=== PATIENT | female | born 1970 | race African-American/Black ===

== ENCOUNTER 2016-03-01 15:08 | Day surgery (SDC) | payer OTHER ==
[~2016-03-01] VITALS: Ht 167.6 cm; Wt 55.6 kg
[~2016-03-01 15:08] MED LIST: ALBUTEROL0.83 MG/ML IH; BUTRANS20 MCG/HR TD; IMURAN 50MG TAB50 MG PO; OXYCONTIN 10MG10 MG PO; REVATIO20 MG PO; SEPTRA DS 8001 TAB PO; SINEQUAN 1010 MG/CAP PO; VITAMIN D 50,1.25 MG PO
[2016-03-01 16:19] VITALS: BP 129/90; PULSE 81; TEMP 98.9
[2016-03-01] MEDS ORDERED: ATIVAN 1MG T1 MG/TAB PO (16:24)
[2016-03-01] MEDS ORDERED: PREDNISONE 5MG5 MG PO (16:25)
[2016-03-01] MEDS ORDERED: BACTRIM DS 8001 TAB PO (16:25)
[2016-03-01] MEDS ORDERED: ZOVIRAX 200MG200 MG PO (16:26)
[2016-03-01] MEDS ORDERED: PROGRAF 1MG1 MG PO (16:26)
[2016-03-01] MEDS ORDERED: PROTONIX 40MG T40 MG PO (16:27)
[2016-03-01] MEDS ORDERED: ROXICODONE 55 MG/TAB PO (16:28)
[2016-03-01] MEDS ORDERED: BUTRANS10 MCG/HR TD (16:28)
[2016-03-01] MEDS ORDERED: NEURONTIN300 MG/CAP PO (16:29)
[2016-03-01] MEDS ORDERED: SEPTRA 400 MG-1 TAB PO (16:30)
[2016-03-01] MEDS ORDERED: ATROPINE 2 ML2 ML OU (16:30)
[2016-03-01] MEDS ORDERED: PROGRAF5 MG PO (16:31)
[2016-03-01] MEDS ORDERED: IMURAN 50MG TAB50 MG PO (16:31)
[2016-03-01] MEDS ORDERED: SINEQUAN 1010 MG/CAP PO (16:32)
[2016-03-01] MEDS ORDERED: ASPIRIN E.C. 8181 MG PO (16:32)
[2016-03-01] MEDS ORDERED: REFRESH TEARS 330 ML OP (16:33)
[2016-03-01 17:20] VITALS: BP 125/87; PULSE 83; TEMP 99.4
[2016-03-01 17:35] VITALS: BP 120/93; PULSE 82
[2016-03-01 17:50] VITALS: BP 125/90; PULSE 77
[2016-03-01 17:54] VITALS: BP 111/82; PULSE 72
== END 2016-03-01 18:08 | disposition home or self-care (01) ==
LOC: SDCO 15:08
DX: T18.3XXA Foreign body in small intestine, initial encounter (principal); R13.12 Dysphagia, oropharyngeal phase
CPT/HCPCS: C1769; J2250; J2704; J3010; J7120

== ENCOUNTER 2016-07-03 13:22 | Day surgery (SDC) | payer OTHER ==
[~2016-07-03] VITALS: Ht 160 cm; Wt 56.7 kg
[~2016-07-03 13:22] MED LIST changes: +ASPIRIN E.C. 8181 MG PO; +ATIVAN 1MG T1 MG/TAB PO; +ATROPINE 2 ML2 ML OU; +BACTRIM DS 8001 TAB PO; +BUTRANS10 MCG/HR TD; +NEURONTIN300 MG/CAP PO; +PREDNISONE 5MG5 MG PO; +PROGRAF 1MG1 MG PO; +PROGRAF5 MG PO; +PROTONIX 40MG T40 MG PO; +REFRESH TEARS 330 ML OP; +ROXICODONE 55 MG/TAB PO; +SEPTRA 400 MG-1 TAB PO; +ZOVIRAX 200MG200 MG PO
[2016-07-03] MEDS ORDERED: CYMBALTA 60MG60 MG PO (14:26)
[2016-07-03 15:05] VITALS: BP 121/86; PULSE 81; TEMP 98.6
[2016-07-03 15:50] VITALS: BP 124/91; PULSE 81; TEMP 98.1
[2016-07-03 16:05] VITALS: BP 128/96; PULSE 76
[2016-07-03] MEDS ORDERED: ZANTAC 150MG T150 MG PO (16:18)
[2016-07-03 16:20] VITALS: BP 116/92; PULSE 75
[2016-07-03 16:35] VITALS: BP 124/86; PULSE 74
== END 2016-07-03 17:15 | disposition home or self-care (01) ==
LOC: SDCO 13:22
DX: R13.12 Dysphagia, oropharyngeal phase (principal); K25.7 Chronic gastric ulcer without hemorrhage or perforation
CPT/HCPCS: OP; J0690; J2704; J7030

== ENCOUNTER → 2016-08-24 | Outpatient (CLI) | payer OTHER ==
[~2016-08-24] MED LIST changes: +CYMBALTA 60MG60 MG PO; +ZANTAC 150MG T150 MG PO
== END ==
LOC: COL.VAS 10:19
DX: I34.0 Nonrheumatic mitral (valve) insufficiency (principal); M06.9 Rheumatoid arthritis, unspecified; D86.9 Sarcoidosis, unspecified; I87.8 Other specified disorders of veins; R60.0 Localized edema; R06.02 Shortness of breath; R06.01 Orthopnea; Z94.2 Lung transplant status

== ENCOUNTER 2017-06-22 11:44 | Emergency (ER) | payer OTHER ==
[~2017-06-22] VITALS: Ht 167.6 cm; Wt 63.6 kg
[2017-06-22 11:49] VITALS: BP 106/70; TEMP 97
[2017-06-22 12:59] VITALS: PULSE 77
== END 2017-06-22 13:12 | disposition other institution (70) ==
LOC: COL.ER 11:44
DX: Z43.1 Encounter for attention to gastrostomy (principal); Z79.52 Long term (current) use of systemic steroids; Z79.82 Long term (current) use of aspirin

== ENCOUNTER 2017-08-14 15:22 | Outpatient (CLI) | payer OTHER ==
[~2017-08-14] VITALS: Ht 167.6 cm; Wt 68.6 kg
[2017-08-14] MEDS ORDERED: ACIPHEX20 MG PO (16:08)
[2017-08-14] MEDS ORDERED: RT SPIRIVA18 MCG IH (16:08)
[2017-08-14] MEDS ORDERED: PROAIR RES117 MCG/Ac IH (16:09)
[2017-08-14] MEDS ORDERED: RT ADVAIR 528 DISKUS IH (16:10)
[2017-08-14] MEDS ORDERED: INDERAL40 MG PO (16:10)
[2017-08-14] MEDS ORDERED: ZOLOFT 100MG100 MG PO (16:12)
[2017-08-14] MEDS ORDERED: PRILOSEC 20MG20 MG PO (16:13)
[2017-08-14] MEDS ORDERED: AMBIEN 10MG10 MG PO (16:13)
[2017-08-14] MEDS ORDERED: MELATONIN5 M1 SL (16:14)
[2017-08-14] MEDS ORDERED: REVATIO20 MG PO (16:15)
[2017-08-14] MEDS ORDERED: METHOTREXA2.5 MG/TAB PO ×2 (16:17→16:18)
[2017-08-14] MEDS ORDERED: PROGRAF 1MG1 MG PO ×2 (16:30→16:31)
[2017-08-14 16:47] VITALS: BP 110/77; PULSE 78; TEMP 97.9
[2017-08-14 20:32] LABS: COLLECTION METHOD CLEAN CATCH
[2017-08-14 20:44] LABS: MUCOUS Present /lpf; PH 5 (5-8); URINE APPEARANCE Hazy; URINE BACTERIA Rare /hpf; URINE BILIRUBIN Negative (NEGATIVE); URINE BLOOD Negative (NEGATIVE); URINE COLOR Yellow; URINE GLUCOSE Negative (NEGATIVE); URINE KETONE Negative (NEGATIVE); URINE LEUKOCYTE ESTERASE Trace (NEGATIVE); URINE NITRATE Negative (NEGATIVE); URINE PROTEIN(semi-quant) Negative (NEGATIVE); URINE RBC 0-2 /hpf
[2017-08-14 20:50] LABS: URINE PROTEIN:CREAT RATIO 0.04 (0.00-0.14)
== END 2017-08-14 20:43 | disposition home or self-care (01) ==
LOC: EUO 15:22
PROVIDERS: Internal Medicine Nephrology
DX: N17.9 Acute kidney failure, unspecified (principal); D86.9 Sarcoidosis, unspecified; I27.20 Pulmonary hypertension, unspecified; N18.3 Chronic kidney disease, stage 3 (moderate); R60.9 Edema, unspecified; D64.9 Anemia, unspecified; I34.0 Nonrheumatic mitral (valve) insufficiency; Z94.2 Lung transplant status
CPT/HCPCS: J7030

== ENCOUNTER 2017-09-03 14:24 | Observation (INO) | payer OTHER ==
[~2017-09-03] VITALS: Ht 167.6 cm; Wt 68.8 kg
[~2017-09-03 14:24] MED LIST changes: +ACIPHEX20 MG PO; +AMBIEN 10MG10 MG PO; +INDERAL40 MG PO; +MELATONIN5 M1 SL; +METHOTREXA2.5 MG/TAB PO; +PRILOSEC 20MG20 MG PO; +PROAIR RES117 MCG/Ac IH; +RT ADVAIR 528 DISKUS IH; +RT SPIRIVA18 MCG IH; +ZOLOFT 100MG100 MG PO
[2017-09-03 16:43] LABS: BASO % 0.4 % (0.0-2.0); EOS # 0.1 (0.0-0.7); EOS % 3.1 % (0-4.0); GRAN # 1.1 (1.4-6.5); GRAN % 47.6 % (42.2-75.2); LYMPH # 0.9 (1.2-3.4); LYMPH % 39.9 % (20.0-51.0); MEAN CELL VOLUME 80 fl (80.0-100.0); MEAN CORPUSCULAR HGB CONC 28 g/dl (33.0-37.0); MEAN PLATELET VOLUME 12.2 fl (7.4-10.4); MONO # 0.2 (0.1-0.6); PLATELET COUNT 162 K/mm3 (130-400); RED BLOOD COUNT 3.56 M/mm3 (4.10-5.30); REDCELL DISTRIBUTION WIDTH-CV 17.4 % (11.5-14.5)
[2017-09-03 16:46] LABS: HEMATOCRIT 28.4 % (37.0-47.0); MEAN CORPUSCULAR HEMOGLOBIN 22 pg (27.0-31.0)
[2017-09-03 16:53] LABS: ALBUMIN 3.5 gm/dL (3.5-5.0); BILIRUBIN,TOTAL 0.6 mg/dL (0.0-1.0); CREATININE, serum 2.25 mg/dL (0.52-1.25); POTASSIUM 3.7 mmol/L (3.4-5.0); TOTAL PROTEIN 6.7 gm/dL (6.4-8.2)
[2017-09-03 18:24] VITALS: BP 110/83; PULSE 64; TEMP 98.2
[2017-09-03 20:00] VITALS: BP 112/79; PULSE 78; TEMP 98.6
[2017-09-04 04:56] VITALS: BP 102/76; PULSE 67; TEMP 98.5
[2017-09-04 07:01] LABS: BASO % 0.4 % (0.0-2.0); EOS % 1.7 % (0-4.0); GRAN # 1.6 (1.4-6.5); LYMPH # 0.5 (1.2-3.4); LYMPH % 22.1 % (20.0-51.0); MEAN CELL VOLUME 80 fl (80.0-100.0); MEAN CORPUSCULAR HGB CONC 29 g/dl (33.0-37.0); MEAN PLATELET VOLUME 12.1 fl (7.4-10.4); MONO # 0.2 (0.1-0.6); MONO % 7.8 % (1.7-9.3); PLATELET COUNT 179 K/mm3 (130-400); RED BLOOD COUNT 3.45 M/mm3 (4.10-5.30); REDCELL DISTRIBUTION WIDTH-CV 17.5 % (11.5-14.5)
[2017-09-04 07:04] LABS: CALCIUM 8.9 mg/dL (8.4-10.2); CREATININE, serum 2.05 mg/dL (0.52-1.25); POTASSIUM 4.3 mmol/L (3.4-5.0)
[2017-09-04 07:06] LABS: HEMATOCRIT 27.5 % (37.0-47.0); HEMOGLOBIN 7.9 g/dl (12.5-16.0); MEAN CORPUSCULAR HEMOGLOBIN 23 pg (27.0-31.0)
[2017-09-04 07:43] VITALS: BP 122/84; PULSE 71; TEMP 97.8
[2017-09-04 08:24] LABS: INR 1.4 (0.8-3.0); PROTHROMBIN TIME 15.9 SECONDS (9.7-12.8)
[2017-09-04 12:03] VITALS: BP 108/80; PULSE 62; TEMP 97.4
[2017-09-04 15:57] VITALS: BP 111/79; PULSE 71; TEMP 98.2
[2017-09-04 18:32] VITALS: BP 121/79; PULSE 72; TEMP 98.2
[2017-09-04 18:47] VITALS: BP 128/88; PULSE 73
== END 2017-09-04 20:36 | disposition home or self-care (01) ==
LOC: COL.ER 14:24 → SURG 17:37
PROVIDERS: Emergency Medicine; Physician Assistant
DX: Z43.1 Encounter for attention to gastrostomy (principal); Z94.2 Lung transplant status; D86.9 Sarcoidosis, unspecified; J84.10 Pulmonary fibrosis, unspecified; I27.20 Pulmonary hypertension, unspecified; M06.9 Rheumatoid arthritis, unspecified; F41.9 Anxiety disorder, unspecified; N18.3 Chronic kidney disease, stage 3 (moderate); K21.9 Gastro-esophageal reflux disease without esophagitis; G43.909 Migraine, unspecified, not intractable, without status migrainosus; G89.29 Other chronic pain; D53.9 Nutritional anemia, unspecified; Z86.718 Personal history of other venous thrombosis and embolism; Z79.82 Long term (current) use of aspirin; Z90.49 Acquired absence of other specified parts of digestive tract; Z95.5 Presence of coronary angioplasty implant and graft; Z80.0 Family history of malignant neoplasm of digestive organs
CPT/HCPCS: B4087; G0378; J2704; J7500; J7507; J7512

== ENCOUNTER 2017-12-04 15:54 | Day surgery (SDC) | payer OTHER ==
[~2017-12-04] VITALS: Ht 167.6 cm; Wt 68.2 kg
[~2017-12-04 15:54] MED LIST changes: +ATROPINE 2 ML2 ML OS; -ATROPINE 2 ML2 ML OU; -REFRESH TEARS 330 ML OP; +REFRESH TEARS 330 ML OU
[2017-12-04 16:52] VITALS: BP 111/85; PULSE 81; TEMP 98.8
[2017-12-04 17:15] VITALS: BP 119/91; PULSE 81
[2017-12-04 17:25] VITALS: BP 118/102; PULSE 82
[2017-12-04 17:35] VITALS: BP 127/94; PULSE 81
== END 2017-12-04 17:45 | disposition home or self-care (01) ==
LOC: SDCO 15:54
DX: K31.6 Fistula of stomach and duodenum (principal); R13.10 Dysphagia, unspecified; K94.23 Gastrostomy malfunction; K21.9 Gastro-esophageal reflux disease without esophagitis; I27.20 Pulmonary hypertension, unspecified; N18.3 Chronic kidney disease, stage 3 (moderate); M06.9 Rheumatoid arthritis, unspecified; G89.29 Other chronic pain; F41.9 Anxiety disorder, unspecified; G43.909 Migraine, unspecified, not intractable, without status migrainosus; D64.9 Anemia, unspecified; Z90.49 Acquired absence of other specified parts of digestive tract
CPT/HCPCS: J2704; J3010; J7030

== ENCOUNTER 2018-02-13 13:17 | Day surgery (SDC) | payer OTHER ==
[~2018-02-13] VITALS: Ht 167.6 cm; Wt 77.7 kg
[2018-02-13 14:29] VITALS: BP 115/80; PULSE 80; TEMP 98.4
--- NOTE | 2018-02-13 14:30 | NUR ---
Dr Ashley notified of patient having suicidal throughts within the past month. He wants to proceed with the procedure and give the patient information to contact [facility].
[2018-02-13 15:40] VITALS: BP 113/86; PULSE 75; TEMP 98.9
--- NOTE | 2018-02-13 15:40 | NUR ---
Patient arrives back to [facility] [id number] drowsy, denies pain or nausea. Patient ambulates from cart to chair with stand by assist. Patient monitor applied, vitals stable. Patient's spouse in room.
[2018-02-13 15:55] VITALS: BP 118/93; PULSE 80
--- NOTE | 2018-02-13 16:00 | NUR ---
Attempted to contact [facility]ident [facility] at this time, no staff is in the building at this time.
--- NOTE | 2018-02-13 16:20 | NUR ---
Outpatient Surgery supervisor telephone answering service and ICU charge nurse instruct to give patient contact information for [facility] since all social service workers have left our facility for the day.
[2018-02-13 16:27] VITALS: BP 99/72; PULSE 71
--- NOTE | 2018-02-13 16:30 | NUR ---
Dismissal instructions gone over with patient and patient's spouse. Both verbalize understanding and all questions answered.
--- NOTE | 2018-02-13 16:40 | NUR ---
Patient discharged to front of hospital where picks her up in private vehicle. Patient and both thank staff for services.
== END 2018-02-13 16:40 | disposition home or self-care (01) ==
LOC: SDCO 13:17
DX: Z43.1 Encounter for attention to gastrostomy (principal); R13.10 Dysphagia, unspecified; D86.0 Sarcoidosis of lung; R63.4 Abnormal weight loss; R11.10 Vomiting, unspecified; Z79.82 Long term (current) use of aspirin; Z79.899 Other long term (current) drug therapy; K21.9 Gastro-esophageal reflux disease without esophagitis; I27.20 Pulmonary hypertension, unspecified; F41.9 Anxiety disorder, unspecified; J84.10 Pulmonary fibrosis, unspecified; Z94.2 Lung transplant status
CPT/HCPCS: B4081; J2704; J7030

== ENCOUNTER 2018-06-01 23:45 | Emergency (ER) | payer OTHER ==
[~2018-06-01] VITALS: Ht 167.6 cm; Wt 51.8 kg
[2018-06-01 23:54] VITALS: TEMP 98.5
[2018-06-02 00:13] LABS: ARTERIAL BLD GAS O2 SATURATION 92.8 % (92-100); ARTERIAL BLD GAS TCO2 CT 23.5; ARTERIAL BLOOD GAS BASE EXCESS 0.3 (-2-2); ARTERIAL BLOOD GAS HCO3 22.6 meq/L (22-26); ARTERIAL BLOOD GAS PCO2 29.4 mmHg (35-45); ARTERIAL BLOOD GAS PO2 68.2 mmHg (80-100)
[2018-06-02] MEDS ORDERED: MASON NATURAL2000 IU (00:15)
[2018-06-02] MEDS ORDERED: SEPTRA DS 8001 TAB (00:16)
[2018-06-02] MEDS ORDERED: PROGRAF 1MG1 MG (00:19)
[2018-06-02 00:24] LABS: BASO % 0.4 % (0.0-2.0); EOS # 0.1 (0.0-0.7); EOS % 1.8 % (0-4.0); GRAN # 6.4 (1.4-6.5); GRAN % 82.2 % (42.2-75.2); HEMOGLOBIN 11.1 g/dl (12.5-16.0); LYMPH # 0.7 (1.2-3.4); LYMPH % 9.5 % (20.0-51.0); MEAN CELL VOLUME 85 fl (80.0-100.0); MEAN CORPUSCULAR HEMOGLOBIN 28 pg (27.0-31.0); MEAN CORPUSCULAR HGB CONC 32 g/dl (33.0-37.0); MEAN PLATELET VOLUME 11.5 fl (7.4-10.4); MONO # 0.4 (0.1-0.6); MONO % 5.7 % (1.7-9.3); PLATELET COUNT 135 K/mm3 (130-400); RED BLOOD COUNT 4.02 M/mm3 (4.10-5.30); REDCELL DISTRIBUTION WIDTH-CV 17.5 % (11.5-14.5)
[2018-06-02 00:27] LABS: HEMATOCRIT 34.3 % (37.0-47.0)
[2018-06-02 00:33] LABS: INR 1.9 (0.8-3.0); PROTHROMBIN TIME 21.4 SECONDS (9.7-12.8)
[2018-06-02 00:37] LABS: ALBUMIN 3.1 gm/dL (3.5-5.0); BILIRUBIN,TOTAL 1.6 mg/dL (0.0-1.0); CALCIUM 8.6 mg/dL (8.4-10.2); CREATININE, serum 1.77 (0.52-1.25); POTASSIUM 3.2 mmol/L (3.4-5.0); TOTAL PROTEIN 6.9 gm/dL (6.4-8.2)
[2018-06-02 00:49] LABS: TROPONIN-I 0.765 ng/mL (0.000-0.035)
[2018-06-02 01:44] LABS: ARTERIAL BLD GAS O2 SATURATION 90.9 % (92-100); ARTERIAL BLD GAS TCO2 CT 23.9; ARTERIAL BLOOD GAS BASE EXCESS -0.3 (-2-2); ARTERIAL BLOOD GAS HCO3 22.9 meq/L (22-26); ARTERIAL BLOOD GAS PCO2 32.9 mmHg (35-45); ARTERIAL BLOOD GAS PO2 64.2 mmHg (80-100); ARTERIAL BLOOD GAS pH 7.46 (7.35-7.45)
[2018-06-02 02:49] VITALS: BP 103/73; PULSE 124
== END 2018-06-02 02:49 | disposition short-term general hospital (02) ==
LOC: COL.ER 23:45
PROVIDERS: Emergency Medicine
DX: I50.1 Left ventricular failure, unspecified (principal); I21.3 ST elevation (STEMI) myocardial infarction of unspecified site; J96.90 Respiratory failure, unspecified, unspecified whether with hypoxia or hypercapnia; I27.20 Pulmonary hypertension, unspecified; N19 Unspecified kidney failure; M06.9 Rheumatoid arthritis, unspecified; D64.9 Anemia, unspecified; Z87.19 Personal history of other diseases of the digestive system; Z90.49 Acquired absence of other specified parts of digestive tract; Z79.51 Long term (current) use of inhaled steroids; Z79.82 Long term (current) use of aspirin
CPT/HCPCS: J1630; J1644; J1940; J2060; J2270; J3480; J7030